=== PATIENT | male | born 1965 | race African-American/Black ===

== ENCOUNTER 2017-04-17 02:18 | Emergency (ER) | payer OTHER ==
[2012-06-19 15:04] VITALS: BMI 23.7
== END 2017-04-17 03:18 | disposition home or self-care (01) ==
LOC: D.ER 02:18
DX: M51.26 Other intervertebral disc displacement, lumbar region (principal)

== ENCOUNTER 2017-05-12 17:49 | Emergency (ER) | payer OTHER ==
[2012-06-19 15:04] VITALS: BMI 23.7
== END 2017-05-12 20:26 | disposition home or self-care (01) ==
LOC: D.ER 17:49
DX: M54.30 Sciatica, unspecified side (principal); M54.5 Low back pain